=== PATIENT | male | born 2005 | race Caucasian/White ===

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

== ENCOUNTER 2024-02-24 18:01 | Emergency (ER) | payer BC ==
[~2024-02-24] VITALS: Ht 172.7 cm; Wt 90.8 kg
[~2024-02-24 18:01] MED LIST changes: +ONDA-282 PO; -ONDA4TAB6 PO
[2024-02-24] MEDS ORDERED: EPIN0.3I11 (18:06)
[2024-02-24] MEDS ORDERED: MONT10TA97 (18:06)
[2024-02-24] MEDS ORDERED: MOME13HF (18:06)
[2024-02-24 20:07] VITALS: BP 128/77; TEMP 98.3; O2SAT 97
[2024-02-24] MEDS ORDERED: NAPR-885 PO (20:34)
== END 2024-02-24 21:31 | disposition home or self-care (01) ==
LOC: M ED 18:01
DX: M76.01 Gluteal tendinitis, right hip (principal); J45.909 Unspecified asthma, uncomplicated; Z91.040 Latex allergy status; Z79.899 Other long term (current) drug therapy